=== PATIENT | male | born 2005 | race Caucasian/White ===

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

== ENCOUNTER 2023-12-17 12:09 | Emergency (ER) | payer OTHER, SELFPAY ==
[2023-12-17 12:09] VITALS: BP 130/100; PULSE 85; RESP 22; TEMP 36.2; O2SAT 98; BMI 30.8
--- NOTE | 2023-12-17 12:37 | EDS_ITS ---
HPI History of Present Illness Chief Complaint: Palpitations Informant: patient Onset/Context/Timing Onset: Yesterday Context: Gradual Onset Timing: Intermittent and Lasts (Approximately 1 minute) Quality: Movement Location: Chest Worsened by: Driving Relieved by: Nothing Narrative Narrative: Patient presents with palpitations that began yesterday. Patient states it came on gradually. Patient states they have been intermittent and lasted approximately 1 minute. Patient states it feels like something is moving in his chest. Patient states it seemed to get worse while he was driving today. Patient admits to some mild shortness of breath and occasional cough. Patient denies any nausea or vomiting. Patient denies any fevers or chills. Patient states nothing seems to help with his symptoms. [facility] Medical History Hypohidrosis Home Medications NK 12/05/22 [History Last Taken Unknown] Allergy/AdvReac Type Severity Reaction Status Date / Time No Known Allergies Allergy Verified 12/05/22 03:07 Surgical History H/O removal of testicle S/P appy Social History Smoking Status: Never smoker ROS ROS ED Constitutional Constitutional ED: Denies chills or fever(s) Eyes Eyes: Denies blurry vision or change in vision ENT ENT ED: Denies rhinorrhea or sore throat Cardiovascular Cardiovascular: Reports chest pain and palpitations Respiratory/Chest Respiratory/Chest: Reports cough and dyspnea Gastrointestinal Gastrointestinal: Denies nausea or vomiting Genitourinary Genitourinary ED: Denies dysuria or hematuria Musculoskeletal Musculoskeletal: Denies back pain or neck pain Integumentary Denies abscess or rash Neurologic Neurologic: Denies headache(s) or weakness Allergic/Immunologic Allergic/Immunologic ED: Denies mouth swelling or urticaria EXAM Physical Exam Const Vital Signs: 12/17/23 12:09 12/17/23 12:09 Temperature 97.1 F L Temperature Source Temporal Pulse Rate 85 Respiratory Rate 22 H Respiratory Effort Normal Blood Pressure 130/100 H Blood Pressure Mean 110 Pulse Ox 98 Oxygen Delivery Method Room Air MDM MDM MDM Narrative Medical decision making narrative: Differential diagnosis includes cardiac dysrhythmia, cardiac ischemia, pneumonia, viral infection, pneumothorax, and anxiety. CBC will be obtained to assess for leukocytosis and anemia. Basic metabolic profile will be obtained to assess for electrolyte abnormality and renal function. High-sensitivity troponin will be obtained to assess for cardiac ischemia. Chest x-ray will be obtained to assess for pneumonia and pneumothorax. EKG will be obtained to assess for cardiac dysrhythmia and cardiac ischemia. COVID-19, influenza, and RSV PCR will be obtained to assess for viral infection. Lab Data Attestation: I reviewed the patient's lab results. Lab results narrative: CBC was reviewed and was within normal limits. Basic metabolic profile was reviewed and was within normal limits. High-sensitivity troponin was reviewed and was normal. Radiography Chest X-Ray - ED: 2 View, Read by ED Physician, Read by Radiologist and No Acute Disease Diagnostic Testing: PA and lateral chest x-ray was obtained. There are 2 views. On my independent interpretation, lung leija are clear. There is normal cardiac silhouette. Bony thorax is normal. There is no acute process noted. Radiologist also interpreted the x-ray and agrees. EKG Initial EKG: Attestation: I personally reviewed and interpreted this EKG as follows: Interpretation: Sinus Rhythm (With occasional PACs and PVCs with a rate of 96) and No Acute Injury Pattern Comments: EKG was obtained. On my independent interpretation, it showed a normal sinus rhythm with occasional PACs and PVCs with a rate of 96. HI interval, QRS interval, and QTc intervals were all normal. [place] was normal. There are no acute ST or T wave changes. Prior EKG tracings: not available for review Prior: No Prior Treatment and Re-Evaluation :: Patient was placed on continuous cardiac and pulse ox of her monitor. Patient was noted to have PVCs and PACs whenever he would have symptoms. Patient patient was advised of his findings. Patient was instructed to follow-up with his primary care physician in 5 to 7 days. Patient was instructed to return if worse in any way. Patient understood and was agreeable with the plan. All questions were answered. Discharge Plan Triage Chief Complaint: Palpitations ED Provider: Deuce Torres Dx/Rx/DC Orders Clinical Impression: Heart palpitations, Frequent PVCs Instructions: ED Palpitations Prescriptions: No Action NK Primary Care Provider: Care Physician,No Primary Referrals: Care Physician,No Primary [Primary Care Provider] - Disposition Disposition: Home, Self Care
--- NOTE | 2023-12-17 13:05 | RAD_ITS ---
STUDY: X-RAY CHEST REASON FOR EXAM: Male, 18 years old. Palpitations TECHNIQUE: PA and lateral views of the chest. COMPARISON: None. FINDINGS: EKG electrodes are seen. The lungs are clear and expanded. There is no demonstrated pleural abnormality. Normal size heart. Normal mediastinum and racquel. Normal visualized pulmonary arteries. Normal visualized aortic arch and descending thoracic aorta. Normal visualized thoracic spine. Normal visualized ribs, clavicles, and shoulders. There is no demonstrated abnormality of the visualized soft tissue structures of the upper abdomen. RAD/Chest PA and Lateral IMPRESSION: Normal x-ray examination of the chest. Electronically Signed: Kadeem Chang MD at 13:18 EST ,
[2023-12-17 13:08] LABS: Absolute Lymphocyte Count 2.05 X10^3/uL (0.83-4.51); Absolute Neutrophil Count 2.3 X10^3/uL (2.0-7.7); Basophil# 0.03 X10^3/uL; Basophil% 0.6 % (0-1); Eosinophil# 0.15 X10^3/uL; Hematocrit 46.2 % (40-54); Hemoglobin 15.6 g/dL (13.0-16.5); Lymphocyte # 2.05 X10^3/ul (0.83-4.51); Lymphocyte % 41.7 % (19-41); Mean Corp Hgb Conc 33.8 g/dL (32-36); Mean Corpuscular Hgb 28.7 pg (27.0-32.0); Mean Corpuscular Volume 84.9 fL (80-94); Mean Platelet Vol. 9.7 fl (6.2-12.0); Monocyte% 8.1 % (0-10); NRBC Flagged by Analyzer 0 % (0-5); Neutrophil # 2.28 X10^3/uL (2.7-7.7); Neutrophil % 46.4 % (47-70); Platelet Count 321 K/mm3 (150-450); RBC Distribution Width CV 12.1 % (11.6-14.6); RBC Distribution Width SD 36.8 fl (35.1-43.9); Red Blood Count 5.44 M/mm3 (4.6-6.2); White Blood Count 4.9 K/mm3 (4.4-11.0)
--- NOTE | 2023-12-17 13:09 | ED.RN ---
no old ekg
--- OUTSIDE RECORDS SUMMARY | 2023-12-17 13:27 | XMS RPT_ITS | CCD ---
Author Name Unknown Address [address] [place] [address] Organization [facility] Care Team Providers Care Community Service Technician Name Role Phone David Rollins Consulting Unavailable MD JOSE A LY Primary Care UnavailLAURA Tabor PA-C Attending Un available MD JOSE A LY Consulting UnavailBraydon Olivarez Primary Care Physician Unavail Braydon Katz Unavailable Unavailable Medications Completed/Discontinued Medications Medication Drug Class(es) Dates Sig (Normalized) Sig (Original) aluminum chloride 200 mg/ml topical solution (2 sources) Start: 01-02-2020 Drysol 20 % topical solution 01/02/2020 apply to affected area by topical route QD x 14 days then weekends only. Disp: 1 bottle Problems Active Problems Problem Classification Problem Date Documented Date Episodic/Chronic Other and unspecified benign neoplasm (1 source) Other benign neoplasm of skin, unspecified Onset: 02-03-2023 Episodic Other circulatory disease (3 sources) Nevus, non-neoplastic Onset: 07-23-2017 Episodic Other skin disorders (8 sources) Generalized hyperhidrosis Onset: 05-14-2017 Episodic Past or Other Problems Problem Classification Problem Date Documented Da te Episodic/Chronic Other skin disorders (3 sources) Primary focal hyperhidrosis, unspecified Onset: 09-10-2016 Episodic Results Test Name Value Interpretation Reference Range Facil ity Vital Signs Date Time Vital Sign Value Performing Clinician Faci lity 05-14-2017 11:32-0400 Diastolic blood pressure 78 mm[Hg] Braydon Brenner [facility] 05-14-2017 11:32-0400 Systolic blood pressure 124 mm[Hg] Braydon Brenner [facility] Encounters Encounter Date Encounter Type Care Provider Facility Start: 02-03-2023 Office outpatient vi sit 15 minutes Braydon Brenner Other [facility] Start: 08-11-2021 End: 08-11-2021 Emergency department patient visit David Rollins Facility:[facility] Start: 01-02-2020 Office outpatient vi sit 15 minutes Braydon Brenner Other [facility] Start: 12-05-2018 Office outpatient vi sit 10 minutes Braydon Brenner Other [facility] Start: 05-24-2018 Office outpatient vi sit 10 minutes Braydon Brenner Other [facility] Start: 04-19-2018 Office outpatient vi sit 15 minutes Braydon Brenner Other [facility] Start: 07-23-2017 Office outpatient vi sit 15 minutes Braydon Brenner Other [facility] Start: 06-10-2017 Office outpatient vi sit 10 minutes Braydon Brenner Other [facility] Start: 05-14-2017 Office outpatient vi sit 15 minutes Braydon Brenner Other [facility] Office Start: 11-17-2016 Office outpatient vi sit 15 minutes Ravi Carolee Other [facility] Office Start: 10-13-2016 Office outpatient vi sit 15 minutes Ravi Carolee Other [facility] Office Start: 09-10-2016 Office consultation new/estab patient 30 min Ravi Carolee Other [facility] Office Procedures Date Procedure Procedure Detail Performing Clinician Start: 02-03-2023 Docrev cur meds by hallie Brenner Start: 12-05-2018 Docrev cur meds by hallie Brenner Start: 04-19-2018 Docrev cur meds by hallie Brenner Start: 07-23-2017 Docrev cur meds by hallie Brenner Start: 05-14-2017 Docrev cur meds by hallie Brenner Payers Date Payer Category Payer Unknown 2003 Unknown [id number] Unknown [id number] Unknown [id number] Social History Date Type Detail Facility Start: Nonsm[employer] [place] [employer] [facility] [employer] Summary Purpose Family History No Family History Records Found Advance Directives No Advanced Directives Records Found Additional Source Comments (unrecognized sect ion and content) No Status Records Found INFORMATION SOURCE (unrecogn ized section and content) FOR RECORDS PERTAINING TO PATIENTS WHO ARE OR HAVE BEEN ENROLLED IN A CHEMICAL DEPENDENCY/SUBSTANCEABUSE PROGRAM, SOME INFORMATION MAY BE OMITTED. This clinical summary was aggregated from multiple sources. Caution should be exercised in using it in the provision of clinical care. This summary normalizes information from multiple sources, and as a consequence, information in this document may materially change the coding, format and clinical context of patient data. In addition, data may be omitted in some cases. CLINICAL DECISIONS SHOULD BE BASED ON THE PRIMARY CLINICAL RECORDS. [employer] [facility]. provides no warranty or guarantee of the accuracy or completeness of information in this document.
[2023-12-17 13:35] LABS: Anion Gap 5 (5-15); BUN 10 mg/dL (7-18); BUN/Creat Ratio 9.4 RATIO (10-20); Calcium,Total 9.6 mg/dL (8.5-10.1); Chloride 107 mmol/L (98-107); Creatinine, Serum 1.06 mg/dL (0.70-1.30); EST Glomerular Filtration Rate 94 mL/min (>60); Est Glom Filt Rate - Afr Amer 114 mL/min (>60); Estimated Creatinine Clearance 110.82 ml/min; Glucose 85 mg/dL (74-106); Potassium 3.7 mmol/L (3.5-5.1); Sodium Level 138 mmol/L (136-145); Troponin-I HS 6 pg/mL (3.0-78.0)
[2023-12-17 15:09] VITALS: BP 126/76; BP 126/78; PULSE 64; PULSE 98; RESP 14; RESP 16; TEMP 36.4; O2SAT 97; O2SAT 99
== END 2023-12-17 15:19 | disposition home or self-care (01) ==
PROVIDERS: Emergency Provider Emergency Medicine; Visit Provider Emergency Medicine
DX: R00.2 Palpitations (principal); I49.3 Ventricular premature depolarization; R06.02 Shortness of breath
CPT/HCPCS: 71046; 80048; 84484; 85025; 87631; 93005; 99284